=== PATIENT | male | born 1960 | race Caucasian/White ===

== ENCOUNTER 2018-11-20 03:31 | Emergency (ER) | payer MEDICARE, OTHER ==
[2018-11-20] MEDS: PHENYTOIN 1,000 MG in SOD CHLORIDE 0.9% 100 ML IV (07:06)
[2018-11-20] MEDS: KETOROLAC 30 MG INJ IM (08:31)
== END 2018-11-20 09:15 | disposition home or self-care (01) ==
LOC: E/R 03:31
DX: D64.9 Anemia, unspecified (principal); R89.2 Abnormal level of other drugs, medicaments and biological substances in specimens from other organs, systems and tissues; I10 Essential (primary) hypertension; E11.9 Type 2 diabetes mellitus without complications; Z79.4 Long term (current) use of insulin; Z79.82 Long term (current) use of aspirin
CPT/HCPCS: 36415; 71045; 80048; 80185; 81003; 82962; 83880; 84484; 85025; 93005; 96365; 96372; 99285-25